=== PATIENT | male | born 1955 | race Hispanic/Latino ===

== ENCOUNTER 2018-11-02 07:45 | Observation (INO) | payer MEDICARE ==
[~2018-11-02] VITALS: Ht 165.1 cm; Wt 94.3 kg
[~2018-11-02 07:45] MED LIST: CARTIA XT240 MG PO; KLOR-CON 1010 MEQ PO; LOSARTAN POTASS25 MG PO; METFORMIN HCL1000 M1 PO; METOPROLOL TAR100 MG PO
[2018-11-02] MEDS ORDERED: LANOXIN250 MCG PO (15:24)
[2018-11-02] MEDS ORDERED: PROTONIX40 MG PO (15:24)
--- NOTE | 2018-11-03 06:34 | OR ---
[facility] [address], [place] [address] Signed DATE OF OPERATION: 11/02/2018 SURGEON: Glenn Fregoso MD PREOPERATIVE DIAGNOSIS: Acalculous cholecystitis. POSTOPERATIVE DIAGNOSIS: Severe acalculous cholecystitis. PROCEDURE PERFORMED: 1. Laparoscopic cholecystectomy without intraoperative cholangiogram (prolonged and difficult at 2 hours and 5 minutes). 2. Placement of subhepatic drain. ESTIMATED BLOOD LOSS: Minimal. FINDINGS: Giana had severe inflammatory changes to his gallbladder and a very thickened gallbladder wall to the point it was difficult to hold onto. The surrounding omentum was densely adherent to his gallbladder from the top all the way down through the neck in the triangle of Calot. We needed an extra nurse to scrub in to help hold the gallbladder as well as a fan retractor to keep the omentum down and out of the way. We found the cystic duct to be extremely small, maybe 3 mm at most. We had clipped it and divided that. Consequently, we abandoned the intraoperative cholangiogram knowing that the ultrasound and the HIDA scan did not show any evidence of obstruction nor his preoperative blood work. In fact, today he is a little anemic with a hemoglobin of 13.1 and a mean cell volume of 78. However, the AST is normal at 14, ALT normal at 12, alkaline phosphatase normal at 54, total bilirubin normal at 0.5. Albumin is good at 3.9, and the INR drawn this morning was 0.9. The entire surgery took 2 hours in 5 minutes from incision to closure. For these reasons, it was prolonged and difficult. INDICATIONS: Giana is a 63-year-old gentleman who happens to have chronic atrial fibrillation on Coumadin. He is also diabetic. He presented to [facility] with epigastric pain and in rapid ventricular rate. During his workup, it was discovered he had acalculous cholecystitis. There was some concern on the CT scan of his chest. However, the abdominal ultrasound was not particularly concerning. The HIDA scan showed very faint radiotracer uptake into the gallbladder even after injection of Electronically Signed By: GLENN FREGOSO MD 11/03/18 0634 PATIENT NAME: GIANA KEVIN OPERATIVE REPORT DATE OF : 55 REPORT #: [id number] PHYSICIAN: GLENN FREGOSO MD PCP: GIRMA CHRISTIE REPORT IS CONFIDENTIAL AND NOT TO BE RELEASED WITHOUT AUTHORIZATION [facility] [address], [place] [address] Signed the morphine. He had been on antibiotics including his doxycycline. Eventually, he improved and his heart rate returned to normal and he was allowed to be discharged to home. He had been seen by his dermatologist and dermatopathologist while in the hospital and he had an echocardiogram performed as well. His left ventricular ejection fraction is running over 60%. There was some discharge instructions and he was going to see a surgeon sometime in November to have his gallbladder removed. However, he continued to have significant right upper quadrant abdominal pain and he said he really could not eat, any time he ate it caused the pain to be worse since he really was anorexic and quite concerned. He ended up coming to my office to ask if I could help him in a more expeditious fashion. I met with his and his daughter in the office. His speaks a little South African, but his daughters are quite excellent, so is his son. I gave them [employer] brochure on the gallbladder, written in both Mongolian and [place] African. We went through that in great detail. I explained to them that he was really too sick to have his gallbladder out while he was standing at [facility]. It was marmolejo to let this settled down just a bit before taking it out. He understands clearly the location and function of the gallbladder. He understands the laparoscopic versus open cholecystectomy. We also reviewed the expected intraoperative and postoperative course. He is aware of the potential complications including, but not limited to bleeding, infection, scarring, change in contour the skin, damage to bowel damage to main bile duct, incisional hernias and other unforeseen comorbidities. He had expressed understanding and wished to proceed. PROCEDURE NOTE: I met with Giana and his this morning along with his son, who did interpreting for him. Once again we reviewed his course. After this, Giana was taken into our operating room and placed in the supine position under general endotracheal tube anesthesia. He was given preoperative antibiotics along with subcutaneous heparin. SCDs were utilized. We did draw his INR this morning and it was at 0.9. Trocars were then placed in usual positions under direct visualization of camera without difficulty. We could see just the top of the gallbladder. We could tell the color was a little bull and the gallbladder was quite thickened to the point I could barely hold it with my grasper. There was omentum adherent to the top of the gallbladder all the way down to the neck and on the triangle of Calot. We had to have an additional nurse scrubbed in. We did add the fan retractor in order to hold the omentum down and out of the way. It took a significant amount of time to carefully and slowly dissect all the way down the gallbladder and separate the gallbladder from the surrounding omentum. We very carefully dissected out the triangle of Calot and we could see he had a very tiny cystic duct, maybe 3 mm at most. We decided what the amount of inflammation and induration of the tissues in the triangle of Calot that we would not pursue an intraoperative cholangiogram. We went ahead and placed a clip across the cystic duct stump and it was divided. We then very carefully worked our way back to the cystic artery and in a similar fashion we actually placed two clips across the cystic duct and it was divided. Electronically Signed By: GLENN FREGOSO MD 11/03/18 0634 PATIENT NAME: GIANA KEVIN OPERATIVE REPORT DATE OF : 55 REPORT #: [id number] PHYSICIAN: GLENN FREGOSO MD PCP: GIRMA CHRISTIE REPORT IS CONFIDENTIAL AND NOT TO BE RELEASED WITHOUT AUTHORIZATION [facility] [address], [place] [address] Signed Even then the dissection remained quite difficult. It took a tremendous amount of time to very carefully and slowly used a ball-tip cautery to divide the gallbladder from the gallbladder fossa. Once we had the gallbladder completely free, we were able to place it into our EndoCatch bag. The right upper quadrant was irrigated and suctioned out until clear. We placed a #10 flat Franky drain in the gallbladder fossa. We brought that out in the lateral side of the abdomen. This was held in place with a 2-0 nylon suture. We then used our laparoscopic suturing device to pass 0 Vicryl suture on the either side of the fascia of the subxiphoid trocar site as well as the mid epigastric trocar site. These were tied down to close the fascia primarily. After this, all the gas was allowed to escape and all the trocars were removed along with the gallbladder. The gallbladder was opened on the back table by our circulating nurse and again pictures were taken for photodocumentation. It was quite impressive to see the amount of thickness to the gallbladder wall and inflammatory changes along with some necrotic debris and fluid in his gallbladder. We did not find any gallstones. We then used interrupted simple and [id number] 0 Vicryl sutures to close the fascia of the supraumbilical trocar site. Local anesthetic was copiously injected into all trocar sites. Each trocar site was irrigated and suctioned out until clear. The skin and dermis of each trocar site were closed with interrupted 3-0 subcuticular Monocryl sutures. Dry gauze and tape were then applied to all incisions. Giana was awakened from his anesthesia, extubated in the OR, and taken to recovery room in stable condition. Because of the severity of his cholecystitis, we are going to keep Giana overnight in conjunction with his medical comorbidities. Glenn Fregoso MD ALB/MODL /[id number] cc: MD Girma Kim MD Copies: GLENN FREGOSO MD Electronically Signed By: GLENN FREGOSO MD 11/03/18 0634 PATIENT NAME: GIANA KEVIN OPERATIVE REPORT DATE OF : 55 REPORT #: [id number] PHYSICIAN: GLENN FREGOSO MD PCP: GIRMA CHRISTIE REPORT IS CONFIDENTIAL AND NOT TO BE RELEASED WITHOUT AUTHORIZATION [address] [address] Signed GIRMA CHRISTIE ~ Electronically Signed By: GLENN FREGOSO MD 11/03/18 0634 PATIENT NAME: GIANA KEVIN OPERATIVE REPORT DATE OF : 55 REPORT #: [id number] PHYSICIAN: GLENN FREGOSO MD PCP: GIRMA CHRISTIE REPORT IS CONFIDENTIAL AND NOT TO BE RELEASED WITHOUT AUTHORIZATION
[2018-11-03] MEDS ORDERED: NORCO 5-325 TA1 EACH PO (07:28)
[2018-11-03] MEDS ORDERED: CIPRO500 MG PO (07:29)
[2018-11-03] MEDS ORDERED: FLAGYL500 MG PO (07:29)
--- NOTE | 2018-11-03 07:45 | DS ---
[facility] [address] [place], [place] [address] Signed ADMISSION DATE: 11/02/2018 DISCHARGE DATE: 11/03/2018 FINAL DIAGNOSIS: Severe acalculous cholecystitis. PROCEDURE: 1. Laparoscopic cholecystectomy without intraoperative cholangiogram. 2. Placement of subhepatic drain. HISTORY OF PRESENT ILLNESS: Giana is a 63-year-old gentleman, who recently was at [facility] because of his atrial fibrillation and a rapid ventricular heart rate. They found that he had acalculous cholecystitis. He had been on antibiotics and improved. He was allowed to be discharged to home. There were plans being made for him to have his gallbladder removed sometime in November. However, he came to my office because he was continuing to have right upper quadrant abdominal pain and was unable to eat. I met with Giana and his family and we decided to bring him in the hospital for his gallbladder surgery. HOSPITAL COURSE: Flora was taken to the operating room yesterday and underwent a prolonged and difficult laparoscopic cholecystectomy without intraoperative cholangiogram. He still had severe inflammation of the gallbladder with the surrounding omentum and fat. His cystic duct was quite small and the triangle of Calot was quite inflamed and indurated. Consequently, we did not perform his intraoperative cholangiogram. We placed a clip across the cystic duct and we left to drain in the subhepatic space. We were not sure if he was going to be able to eat after surgery or how sick he would be following the intraoperative findings. Consequently, we kept him overnight. He has done exceptionally well. We left him on cefepime and Flagyl overnight. He has been on his home medication except Coumadin. We have given him full liquids and he said he would like to have real food. He said he has no pain. All the incisions look quite nice and his abdominal exam is benign. He has thin serosanguineous fluid out the MARIA A drain. Due to his progress we are going to be discharging him to home. DISCHARGE PLANS AND MEDICATIONS: Giana is going to be discharged home with his drain in place. Our nurse Karen speaks Sri Lankan and so she came with me, so we can give instructions to Giana and his . We went over the drain in detail. He can follow his diet as usual. We will give him Cipro 500 mg p.o. b.i.d. for 5 days as well as Flagyl 500 mg p.o. t.i.d. for five days. He has been given Watkins 5/325 1-2 tablets p.o. q.4 hours p.r.n. for pain. We will dispense Electronically Signed By: GLENN FREGOSO MD 11/03/18 0745 PATIENT NAME: GIANA KEVIN DISCHARGE SUMMARY DATE OF : 55 REPORT #: [id number] PHYSICIAN: GLENN FREGOSO MD PCP: JOSY MORAN REPORT IS CONFIDENTIAL AND NOT TO BE RELEASED WITHOUT AUTHORIZATION [address] [address] Signed 35 tablets with no refills. He will continue all his chronic medications at home. He is going to hold the Coumadin for one week. He can shower and bathe as usual, walk up and down stairs and perform his activities of daily living. We have asked him not to do any heavy pushing, pulling, or lifting over 20 pounds. I will see him back in my office in about a week or 10 days for followup. He and his have expressed understanding and agreed the above plan. Glenn Fregoso MD [facility]/MODL /[id number] cc: MD Gold Kim [employer] Moran Copies: GLENN FREGOSO MD, BRUCE ~ Electronically Signed By: GLENN FREGOSO MD 11/03/18 0745 PATIENT NAME: GIANA KEVIN DISCHARGE SUMMARY DATE OF : 55 REPORT #: [id number] PHYSICIAN: GLENN FREGOSO MD PCP: JOSY MORAN REPORT IS CONFIDENTIAL AND NOT TO BE RELEASED WITHOUT AUTHORIZATION
[2018-11-03] MEDS ORDERED: WARFARIN SODIUM5 MG PO (08:55)
== END 2018-11-03 10:00 | disposition home or self-care (01) ==
LOC: DS 07:45 → MS 13:33 → DS 16:44 → MS 11-03 10:00
PROVIDERS: ADMIT Colon & Rectal Surgery
PROC: 0FT44ZZ Resection of Gallbladder, Percutaneous Endoscopic Approach (ICD-10-PCS; principal; 2018-11-02 10:15)
DX: K81.1 Chronic cholecystitis (principal); I48.2 Chronic atrial fibrillation; I10 Essential (primary) hypertension; I42.8 Other cardiomyopathies; K21.0 Gastro-esophageal reflux disease with esophagitis; E11.9 Type 2 diabetes mellitus without complications; E66.9 Obesity, unspecified; Z68.34 Body mass index [BMI] 34.0-34.9, adult; Z79.01 Long term (current) use of anticoagulants; Z79.84 Long term (current) use of oral hypoglycemic drugs; Z79.891 Long term (current) use of opiate analgesic; Z79.899 Other long term (current) drug therapy
CPT/HCPCS: 00790; 85610; 88304; 96372; 96374; 96375; 96376; G0378; J0330; J0690; J0692; J1100; J1170; J1644; J2250; J2270; J2405; J2704; J3010; J7120